=== PATIENT | female | born 1955 | race Caucasian/White ===

== ENCOUNTER 2020-05-02 16:20 | Inpatient (IN) | payer MEDICAID ==
[~2020-05-02] VITALS: Ht 165.1 cm; Wt 73.0 kg
[2020-05-02] MEDS ORDERED: SODIUM CHLORIDE 0.9% 1000ML BAG (SEPSIS BOLUS) IV ONE (19:00)
[2020-05-02] MEDS ORDERED: CEFTRIAXONE 1 G PREMIX 50 ML IV ONE (19:00)
[2020-05-02] MEDS ORDERED: AZITHROMYCIN 500 MG in DEXT 5% WATER 250 ML IV ONE (19:00)
[2020-05-03] MEDS ORDERED: METHYLPREDNISOLONE SOD SUCC 125 MG/2 ML VIAL IV ONE (02:30)
[2020-05-03 03:27] LABS: CHLORIDE 106 mEq/L (98-107)
[2020-05-03 03:30] LABS: PROTHROMBIN TIME 10.4 sec (9.6-11.0)
[2020-05-03 03:40] LABS: BASOPHILS % 0.7 % (0.0-2.0); EOSINOPHILS % 1.1 % (0.0-5.0); HEMATOCRIT. 33.1 % (36.0-48.0); HEMOGLOBIN. 11.6 g/dL (12.0-16.0); MEAN CORPUSCULAR HEMOGLOBIN 30.3 pg (28.0-32.0); MEAN CORPUSCULAR VOLUME 86.3 fL (81.0-99.0); MEAN PLATELET VOLUME 9.2 fl (7.4-10.4); MONOCYTES % 9.1 % (2.0-8.0); NEUTROPHILS % 66.1 % (40.0-76.0); PLATELET 248 x1000/uL (130-400); RED BLOOD CELL COUNT 3.84 mill/uL (4.2-5.4); RED CELL DISTRIBUTION WIDTH 13.5 % (11.6-14.6)
[2020-05-03] MEDS ORDERED: ACETAMINOPHEN 325MG TABLET PO ONE (04:15)
[2020-05-03 06:09] LABS: CLARITY URINE CLEAR (CLEAR); COLOR URINE YELLOW (YELLOW); KETONES URINE NEGATIVE (NEGATIVE); LEUKOCYTE ESTERASE URINE 1+ (NEGATIVE); NITRITE URINE NEGATIVE (NEGATIVE); OCCULT BLOOD URINE NEGATIVE (NEGATIVE); PROTEIN URINE NEGATIVE (NEGATIVE); SPECIFIC GRAVITY URINE 1.017 (1.005-1.030)
[2020-05-03] MEDS ORDERED: ONDANSETRON HCL 4MG/2ML INJ IV PRN (09:00)
[2020-05-03] MEDS ORDERED: DIPHENHYDRAMINE 50MG/ML VIAL IV PRN (09:00)
[2020-05-03] MEDS ORDERED: ACETAMINOPHEN 325MG TABLET PO PRN (09:00)
[2020-05-03] MEDS ORDERED: CEFTRIAXONE 1 G PREMIX 50 ML IV NR (09:00)
[2020-05-03] MEDS ORDERED: SODIUM POLYSTYRENE SULFONATE 15 G/60 ML BOT PO NR (09:00)
[2020-05-03] MEDS ORDERED: DEXTROSE 50% WATER 50ML SYRINGE IV PRN (09:45)
[2020-05-03] MEDS: ENOXAPARIN 40MG/0.4ML SYR SUBCUT SCH (09:54)
[2020-05-03] MEDS: AZITHROMYCIN 500 MG in DEXT 5% WATER 250 ML IV SCH (12:09)
[2020-05-03] MEDS: BLOOD SUGAR DIAGNOSTIC STRIP TEST SCH ×3 (12:10→21:29)
[2020-05-03] MEDS: INSULIN LISPRO 100 UNITS/ML SUBCUT SCH ×3 (14:31→21:28)
[2020-05-03] MEDS: CLONIDINE 0.1MG TABLET PO PRN (19:06)
[2020-05-04] VITALS (7 sets, daily range): BP systolic 139–162; BP diastolic 53–88
[2020-05-04] MEDS: BLOOD SUGAR DIAGNOSTIC STRIP TEST SCH ×4 (05:23→19:46)
[2020-05-04] MEDS: INSULIN LISPRO 100 UNITS/ML SUBCUT SCH ×4 (05:56→22:40)
[2020-05-04] MEDS ORDERED: CEFTRIAXONE 1,000 MG in DEXTROSE 5% WATER 50 ML IV SCH (08:00)
[2020-05-04] MEDS: CEFTRIAXONE 1,000 MG in DEXTROSE 5% WATER 50 ML IV SCH (08:49)
[2020-05-04] MEDS: ENOXAPARIN 40MG/0.4ML SYR SUBCUT SCH (09:00)
[2020-05-04] MEDS: AZITHROMYCIN 500 MG in DEXT 5% WATER 250 ML IV SCH (09:02)
[2020-05-04 09:47] LABS: BASOPHILS % 0.4 % (0.0-2.0); EOSINOPHILS % 0.3 % (0.0-5.0); HEMATOCRIT. 34.7 % (36.0-48.0); HEMOGLOBIN. 11.7 g/dL (12.0-16.0); LYMPHOCYTES % 18.8 % (20.0-50.0); MEAN CORPUSCULAR HEMOGLOBIN 29.1 pg (28.0-32.0); MEAN CORPUSCULAR VOLUME 86.2 fL (81.0-99.0); MEAN PLATELET VOLUME 8.7 fl (7.4-10.4); MONOCYTES % 8.7 % (2.0-8.0); NEUTROPHILS % 71.8 % (40.0-76.0); PLATELET 320 x1000/uL (130-400); RED BLOOD CELL COUNT 4.03 mill/uL (4.2-5.4); RED CELL DISTRIBUTION WIDTH 13.1 % (11.6-14.6)
[2020-05-04 10:04] LABS: CHLORIDE 108 mEq/L (98-107)
[2020-05-04 10:11] LABS: LDL CHOLESTEROL 121 mg/dL (5-100)
[2020-05-04 10:13] LABS: HDL CHOLESTEROL 26 mg/dL (40-59)
[2020-05-04] MEDS ORDERED: POTASSIUM CHLORIDE 20MEQ/PACKET PO NR (12:15)
[2020-05-04] MEDS: CLONIDINE 0.1MG TABLET PO PRN (22:36)
[2020-05-05] VITALS: BP 149/80
[2020-05-05 04:00] VITALS: BP 162/62
[2020-05-05] MEDS: BLOOD SUGAR DIAGNOSTIC STRIP TEST SCH ×2 (05:30→12:23)
[2020-05-05] MEDS: INSULIN LISPRO 100 UNITS/ML SUBCUT SCH ×2 (06:27→13:27)
[2020-05-05 08:00] VITALS: BP 136/59
[2020-05-05] MEDS ORDERED: LIDOCAINE HCL/PF 1% 2ML VIAL ONE (08:00)
[2020-05-05] MEDS: CEFTRIAXONE 1,000 MG in DEXTROSE 5% WATER 50 ML IV SCH (08:09)
[2020-05-05] MEDS: ENOXAPARIN 40MG/0.4ML SYR SUBCUT SCH (08:09)
[2020-05-05] MEDS ORDERED: AZITHROMYCIN 500 MG in DEXT 5% WATER 250 ML IV SCH (09:00)
[2020-05-05 09:44] LABS: BASOPHILS % 0.6 % (0.0-2.0); HEMATOCRIT. 34.8 % (36.0-48.0); LYMPHOCYTES % 25.4 % (20.0-50.0); MEAN CORPUSCULAR HEMOGLOBIN 29.6 pg (28.0-32.0); MEAN CORPUSCULAR VOLUME 85.7 fL (81.0-99.0); MEAN PLATELET VOLUME 8.4 fl (7.4-10.4); MONOCYTES % 6.7 % (2.0-8.0); NEUTROPHILS % 66.3 % (40.0-76.0); PLATELET 356 x1000/uL (130-400); RED BLOOD CELL COUNT 4.07 mill/uL (4.2-5.4); RED CELL DISTRIBUTION WIDTH 13.3 % (11.6-14.6)
[2020-05-05 10:01] LABS: CHLORIDE 105 mEq/L (98-107)
[2020-05-05 12:00] VITALS: BP 176/62
[2020-05-05] MEDS ORDERED: AMLODIPINE 10MG TABLET PO SCH (12:30)
[2020-05-05 13:56] LABS: BG BASE EXCESS 4.1 mmol/L (-2.0-2.0); BG CARBOXYHEMOGLOBIN 0.5 % (0.5-1.5); BG DEOXYHEMOGLOBIN 5.7 % (0.0-5.0); BG FRACTION INSPIRED OXYGEN 21; BG HCO3 ACT 28.3 mmol/L (22.0-26.0); BG OXYGEN SATURATION 94.3 % (92.0-98.5); BG OXYHEMOGLOBIN 93.8 % (94.0-97.0); BG PCO2 41.2 mmHg (35.0-45.0); BG PH 7.455 (7.350-7.450); BG PO2 68.7 mmHg (75.0-100.0); BG SAMPLE SITE RIGHT RADIAL; BG TOTAL HEMOGLOBIN 12.9 g/dL (12.0-18.0); BG VENT MODE ROOM AIR
[2020-05-05] MEDS ORDERED: DEXA6TAB MT (14:11)
[2020-05-05] MEDS ORDERED: AMLO10TA80 PO (14:11)
[2020-05-05] MEDS ORDERED: AZIT250T12 MT (14:11)
[2020-05-05] MEDS ORDERED: BENZ-16 MT (15:55)
[2020-05-05] MEDS ORDERED: ALBU18HF2 IH (15:55)
[2020-05-05 16:39] VITALS: BP 176/62
[2020-05-06] MEDS ORDERED: AZITHROMYCIN 500 MG TABLET PO SCH (09:00)
== END 2020-05-05 18:05 | disposition home or self-care (01) | DRG 720 ==
LOC: ER 16:20 → EDBEDREQSVC 05-03 02:55 → EDBEDREQDT 05-03 02:55 → EDBEDREQ 05-03 02:55 → EDBEDREQTM 05-03 02:55 → MICUSO 05-03 22:31 → 8WST 05-04 02:32
PROVIDERS: ADMIT Internal Medicine; ATTEND Internal Medicine
DX: A41.89 Other specified sepsis (principal); U07.1 COVID-19; J12.89 Other viral pneumonia; E43 Unspecified severe protein-calorie malnutrition; E87.5 Hyperkalemia; I10 Essential (primary) hypertension; E11.9 Type 2 diabetes mellitus without complications; E78.00 Pure hypercholesterolemia, unspecified; R74.01 Elevation of levels of liver transaminase levels; D64.9 Anemia, unspecified; E78.5 Hyperlipidemia, unspecified; Z90.49 Acquired absence of other specified parts of digestive tract; E87.6 Hypokalemia; Z68.26 Body mass index [BMI] 26.0-26.9, adult
CPT/HCPCS: 36415; 36600; 71045; 80048; 80053; 80061; 81003; 82375; 82728; 82805; 82962; 83605; 83615; 84145; 84443; 84484; 85025; 85379; 86141; 87635; 96374; 96375; 99285; J0456; J0696; J1650; J1815; J2930; J3490; J7030; J7040; J7060